=== PATIENT | female | born 2000 | race Caucasian/White ===

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

== ENCOUNTER → 2020-06-13 | Outpatient (CLI) | payer BC | LOC: MC.RAD 07:56 | DX: N63.21 Unspecified lump in the left breast, upper outer quadrant (principal) ==

== ENCOUNTER → 2020-12-12 | Outpatient (CLI) | payer OTHER | LOC: MC.RAD 09:15 | DX: N63.21 Unspecified lump in the left breast, upper outer quadrant (principal) ==